=== PATIENT | female | born 1990 | race Caucasian/White ===

== ENCOUNTER 2021-02-23 17:16 | Emergency (ER) | payer OTHER ==
[~2021-02-23] VITALS: Ht 154.9 cm; Wt 63.1 kg
[2021-02-23 17:29] VITALS: BP 126/75
--- NOTE | 2021-02-23 18:10 | NUR ---
TO ER BED 5
[2021-02-23 18:32] LABS: BASOPHILS # (AUTO) 0.1 K/uL (0.00-0.22); BASOPHILS % (AUTO) 1.1 % (0.0-2.0); EOSINOPHILS # (AUTO) 0.1 K/uL (0-0.4); EOSINOPHILS % (AUTO) 0.8 % (0.0-4.0); HEMATOCRIT 38.4 % (36-48); HEMOGLOBIN 12.8 g/dL (12.0-16.0); LYMPHOCYTES # (AUTO) 4.1 K/uL (2.5-16.5); LYMPHOCYTES % (AUTO) 31.1 % (20.5-51.1); MEAN CORPUSCULAR HEMOGLOBIN 28 pg (27-31); MEAN CORPUSCULAR HGB CONC 33 g/dL (33-37); MEAN CORPUSCULAR VOLUME 84.9 fL (80-94); MONOCYTES # (AUTO) 0.8 K/uL (0.8-1.0); MONOCYTES % (AUTO) 5.7 % (1.7-9.3); NEUTROPHILS # (AUTO) 8.1 K/uL (1.8-7.7); NEUTROPHILS % (AUTO) 61.3 % (42.2-75.2); PLATELET COUNT (AUTO) 381 K/uL (140-450); RED BLOOD CELL COUNT(AUTO) 4.52 MIL/uL (4.20-5.40); RED CELL DISTRIBUTION WIDTH 14.5 % (11.6-13.7); WHITE BLOOD COUNT (AUTO) 13.2 K/uL (4.8-10.8)
[2021-02-23 18:59] LABS: APPEARANCE,URINE CLEAR (CLEAR); BILIRUBIN,URINE NEGATIVE (NEGATIVE); BLOOD, URINE 2+ (NEGATIVE); COLOR,URINE YELLOW (YELLOW); LEUKOCYTE ESTERASE ,URINE NEGATIVE (NEGATIVE); NITRITE, URINE NEGATIVE (NEGATIVE); PH,URINE 7.5 (5.0-9.0); UGLUCOSE NEGATIVE (NEGATIVE)
--- NOTE | 2021-02-23 19:02 | NUR ---
PT IS A 30 Y/O F BIB BY SELF. PT C/O INTERMITTENT ABDOMINAL PAIN WITH CRAMPING SINCE THIS MORNING. PT LAST MENSTUAL PERIOD OF JAN 04. PT DENIES N/F/V/ HEADACHE, SOB, CHEST PAIN. PT HAS NO COVID VACCINE. NO PAST MEDICAL HX. PT HAS NKA .
--- NOTE | 2021-02-23 19:08 | NUR ---
30/F BIB SELF WITH C/O INTERMITTENT LOWER ABDOMINAL CRAMPING AND HEMATURIA SINCE THIS MORNING. PATIENT STATES SHE RECENTLY FOUND OUT SHE WAS BUT STATES SHE IS UNSURE HOW FAR ALONG SHE IS. PATIENT DENIES N/V/D, SOB, CP, FEVER OR CHILLS. PATIENT IS A0.
[2021-02-23 19:10] LABS: RBC,URINE 20-50 /HPF (0-5)
--- NOTE | 2021-02-23 19:29 | NUR ---
Pt report given to KEEGAN CERRATO. Transfer of care at this time.
--- NOTE | 2021-02-23 19:31 | NUR ---
REPORT GIVEN TO MADDIE ALLISON FOR TRANSFER OF CARE
[2021-02-23] MEDS ORDERED: NITR100C7 PO (20:24)
[2021-02-23] MEDS ORDERED: DOCO200C2 PO (20:25)
[2021-02-23 20:35] VITALS: BP 126/75
--- NOTE | 2021-02-23 20:35 | NUR ---
Patient discharged with v/s stable. Written and verbal after care instructions given and explained. Patient alert, oriented and verbalized understanding of instructions. Ambulatory with steady gait. All questions addressed prior to discharge. ID band removed. Patient advised to follow up with PMD. Rx of DHA AND MACROBID given. Patient educated on indication of medication including possible reaction and side effects. Opportunity to ask questions provided and answered.
--- NOTE | 2021-02-23 20:47 | NUR ---
The patient's care was reviewed and supervised by KINA MERCADO RN.
== END 2021-02-23 20:35 | disposition home or self-care (01) ==
LOC: MED 17:16
DX: O20.0 Threatened abortion (principal); O23.40 Unspecified infection of urinary tract in pregnancy, unspecified trimester; Z3A.01 Less than 8 weeks gestation of pregnancy
CPT/HCPCS: 36415; 76817; 81001; 81025; 84702; 85025; 86900; 86901; 87086; 99284; Q0092